=== PATIENT | female | born 1950 | race Caucasian/White ===

== ENCOUNTER 2018-07-30 18:21 | Emergency (ER) | payer MEDICARE, MEDICAID ==
[~2018-07-30] VITALS: Ht 162.6 cm; Wt 49.5 kg
[~2018-07-30 18:21] MED LIST: ASPI-650 PO; ASPI81TA45 PO; CEFD300C37 PO; CYAN10005 PO; DIVA-61 PO; DIVA250T4 PO; DIVA500T4 PO; FOLI-17 PO; HYDR-3343 PO; HYDR25TA11 PO; IBUP-1222 PO; LAMO100T PO; LAMO25TA13 PO; LEVO750T26 PO; LISI5TAB7 PO; METO50TA82 PO; NICO-485 TD; OLAN5TAB9 PO; OXYB5TAB PO; OXYC-302 PO; QUET200T4 PO; RISP2TAB3 PO; SIMV20TA3 PO; SPIR50TA4 PO; THIA100T67 PO; TRAZ-137 PO; TRAZ300T2 PO; VALP250C59 PO; VERA200C2 PO
--- NOTE | 2018-07-30 18:32 | NUR ---
THIS IS A 68 YO FEMALE PT AMBAR FINNEY FROM [facility] [place] [facility] [place] AFTER STAFF NOTED PT "STARING AT A LIGHT AND THEN TWITCHING". PT DID NOT FALL OR HAVE TYPICAL SEIZURE LIKE ACTIVITY. PT HAS HX OF SEIZURES AND HAD A WITNESSED SEIZURE EARLIER TODAY AT 1230 THAT LASTED APPROX 45 SECONDS PER STAFF. PER EMS, PT WAS AO X 4, NO ORAL TRAUMA NOTED AND NO LOSS OF CONTINENCE WHEN THEY ARRIVED. PT AO X 4 IN ER. FS 71.
--- NOTE | 2018-07-30 18:57 | NUR ---
REPORT TO ESTEFANI JIAN WHO ASSUMED CARE OF PT.
--- NOTE | 2018-07-30 18:58 | NUR ---
PT REPORT FROM NEDA JARA. THIS RN TO ASSUME CARE OF PT. AWAITING MD ASSESSMENT.
[2018-07-30] MEDS ORDERED: AMLO2.5T5 PO (19:05)
[2018-07-30] MEDS ORDERED: DIVA500T2 PO ×2 (19:05)
[2018-07-30] MEDS ORDERED: SERT50TA28 PO (19:05)
[2018-07-30 19:24] LABS: BASOPHILS # (AUTO) 0.04 x10^3/uL (0-0.1); BASOPHILS % (AUTO) 1 % (0-1); EOSINOPHILS # (AUTO) 0.05 x10^3/uL (0-0.4); EOSINOPHILS % (AUTO) 1 % (1-7); LYMPHOCYTES # (AUTO) 1.94 x10^3/uL (1-3.4); LYMPHOCYTES % (AUTO) 28 % (22-44); MD NO; MEAN CORPUSCULAR HEMOGLOBIN 33.1 pg (27.0-34.8); MEAN CORPUSCULAR HGB CONC 34.4 g/dL (32.4-35.8); MEAN CORPUSCULAR VOLUME 96.2 fL (80-100); MEAN PLATELET VOLUME 7.7 fL (7.4-10.4); MONOCYTES # (AUTO) 0.83 x10^3/uL (0.2-0.8); MONOCYTES % (AUTO) 12 % (2-9); NEUTROPHILS # (AUTO) 4.03 x10^3/uL (1.8-6.8); NEUTROPHILS % (AUTO) 59 % (42-75); PLATELET COUNT 350 x10^3/uL (130-400); RED BLOOD COUNT 4.34 x10^6/uL (3.82-5.3); RED CELL DISTRIBUTION WIDTH 14.1 % (9.6-15.2)
--- NOTE | 2018-07-30 19:31 | NUR ---
PT IN CT. PT AWARE OF NEED FOR URINE. STATES WILL ATTEMPT AFTER CT.
[2018-07-30 19:37] LABS: ALBUMIN 3.9 g/dL (3.4-5.0); ANION GAP 6 mmol/L (5-15); CALCIUM 9.4 mg/dL (8.5-10.1); CHLORIDE 99 mmol/L (98-107)
[2018-07-30 19:40] LABS: ALANINE AMINOTRANSFERASE 14 U/L (12-78); ALKALINE PHOSPHATASE 55 U/L (45-117); BILIRUBIN,TOTAL 0.4 mg/dL (0.2-1.0); CREATININE 0.68 mg/dL (0.55-1.02); TOTAL PROTEIN 7.9 g/dL (6.4-8.2)
[2018-07-30 19:51] LABS: MICROSCOPIC AUTO
[2018-07-30 19:52] LABS: CULTURE INDICATED? YES
[2018-07-30] MEDS ORDERED: CEFTRIAXONE PMX 1GM/50ML 50 ML ONE (20:05)
[2018-07-30] MEDS ORDERED: CEFTRIAXONE PMX 1GM/50ML 50 ML IV ONE (20:30)
--- NOTE | 2018-07-30 20:57 | NUR ---
ZHANG. NO IMMEDIATE NEEDS. WATCHING TV ON [employer]. AWAITING FURTHER POC.
--- NOTE | 2018-07-30 22:07 | NUR ---
PT RESTING IN BED COMFORTABLY. ASKING TO BE PUT ONTO PATIO FOR A SMOKE. PT AWARE SHE IS AT [facility]. PT OTHERWISE A+Ox4. TBDC. ATTEMPTING TO GET AHOLD OF PT FACILITY.
--- NOTE | 2018-07-30 22:09 | NUR ---
THIS RN ATTEMPTED TO CALL [facility] AND [facility]. PER [facility], THIS IS WHERE PT IS COMING FROM TODAY. UNABLE TO GET AHOLD OF THEM.
--- NOTE | 2018-07-30 22:40 | NUR ---
PT HAS BEEN INCONTINENT MULTIPLE TIMES THROUGHOUT THE NIGHT. CHANGED AND PLACED ON FRESH SHEETS AND CHUX MULTIPLE PADS. PT WAS IN A BRIEF UPON ARRIVAL AND BRIEF SATURATED W/ URINE AND MILD BREAKDOWN OF THE BRIEF.
[2018-07-30 22:42] VITALS: BP 168/79
--- NOTE | 2018-07-30 22:42 | NUR ---
PT RESTING COMFORTABLY ON GURNEY. RR EVEN AND UNLABORED. NADN. AWAITING [facility] FOR D/C.
--- NOTE | 2018-07-30 23:17 | NUR ---
PT SLEEPING COMFORTABLY. NADN. IV D/C. AWAITING [facility].
== END 2018-07-30 23:53 | disposition home or self-care (01) ==
LOC: ED 20:45
DX: N30.01 Acute cystitis with hematuria (principal); G40.909 Epilepsy, unspecified, not intractable, without status epilepticus; F17.200 Nicotine dependence, unspecified, uncomplicated; Z88.0 Allergy status to penicillin; F31.9 Bipolar disorder, unspecified; F41.1 Generalized anxiety disorder; I10 Essential (primary) hypertension; I25.2 Old myocardial infarction; R51 Headache
CPT/HCPCS: 36415; 70450; 71045; 80053; 81001; 85025; 87086; 87186; 96365; 99284; J0696